=== PATIENT | female | born 2005 | race Two or more races ===

== ENCOUNTER 2024-09-06 16:17 | Emergency (ER) | payer MEDICAID, OTHER ==
[~2024-09-06] VITALS: Ht 157.5 cm; Wt 50.0 kg
--- NOTE | 2024-09-06 16:37 | ED.PDOC ---
History of Present Illness HPI Comments HPI: Poor Historian. 19-year-old female brought in by ambulance from home for evaluation of one day history of generalized weakness nausea vomiting nonbilious nonbloody with the associated slight dizziness. Patient denies any pain anywhere in her body. Per EMS, vital signs were stable. Patient received some Zofran prior to arrival. Patient denies any bleeding from anywhere. Denies any . Denies overdosing on anything. Denies any drug use or alcohol. Past Medical History: Depression Past Surgical History: Denies any Patient is on control pills REVIEW OF SYSTEMS: CONSTITUTIONAL: Denies acute: fever, diaphoresis, chills, HEAD: Denies acute: headache, photophobia Eyes: Denies acute: Double vision, vision loss, eye pain, eye discharge. EARS: Denies acute: tinnitus, hearing loss, ear discharge, ear pain, THROAT: Denies acute: sore throat, swelling, difficulty swallowing , pain with swallowing, change in voice. NECK: Denies acute: neck pain, neck swelling, stiff neck. HEART: Denies acute : chest pain, palpitations, LUNGS: Denies acute: SOB, wheezing, cough, hemoptysis ABDOMEN: Denies acute: abdominal pain, diarrhea, melena , hematemesis, hematochezia SKIN: Denies acute: rash, redness, lesions, itchiness. EXTREMITIES: Denies acute: calf pain, numbness, tingling, weakness, denies pain in extremity. Denies acute: Low back pain. Neuro: Denies acute: focal neurological deficit, motor or sensory focal neurological deficit, tremors, seizure like activity, confusion, change in mental status, loss of bowel or bladder function, cauda equina like symptoms. : Denies acute: dysuria, hematuria, flank pain, increase in urinary frequency. PSYCH: Denies acute: hallucination, suicidal ideation, homicidal ideation. FEMALE: Denies acute: abnormal vaginal bleeding, foul odor, unusual discharge. PHYSICAL EXAM: General: ----no----acute distress, awake and alert. Head: normocephalic, atraumatic. Neck: supple, trachea is midline, no swelling. Throat: Normal phonation. Eyes:, no erythema, no purulent discharge, no proptosis, no icterus. Heart: regular rate, regular rhythm, no significant murmur appreciated. Lungs: no apparent respiratory distress, Able to speak in full sentences. No wheezing, no rhonchi, no crackles. No stridors Clear to auscultation bilaterally. Abdomen: non tender to palpation, non distended, soft, no guarding, no rebound, + bowel sounds. Neuro: Awake, Alert, oriented to name, self, situation, follows commands GCS=15. Speech is normal. Skin: no petechia, no purpura, no cyanosis, slightly-pale, not jaundice. Lower extremities: --no - Pitting edema no deformity, no focal swelling, no calf TTP. Makes eye contact. moves all four extremities. Face: no apparent facial droop. No nuchal rigidity, Kernig's sign, Brudzinski's sign, no meningeal signs. ED COURSE: DISCLAIMER: This medical document was created using an electronic medical record system with voice recognition software and computerized dictation system. Although this document has been carefully reviewed, there might still be some phonetic and typographical errors. Occasional wrong-word or "sound-alike" substitutions may have occurred due to the inherent limitations of voice recognition software. These areas are purely typographical due to imperfections of the software programs and do not reflect any compromise in the patient's medical care. Please read the chart carefully and recognize, using context, where these substitutions have occurred. Chief Complaint: Nausea/Vomiting Time Seen by MD: 16:27 Reviewed Notes: Allergies Allergies: Coded Allergies: NO KNOWN ALLERGIES (Unverified , 09/06/24) Home Meds Active Scripts Nitrofurantoin Monohydrate Mac (Macrobid) 100 Mg Cap, 100 MG PO BID for 7 Days, #14 CAP Prov:AYANNA MEDEIROS DO 09/06/24 Information Source: Patient, Emergency Med Personnel Was a procedure done? Was a procedure done?: No Differential Dx Considerations may include: Includes but not limited to thyroid disease, encephalopathy, electrolyte abnormality, sepsis, infection, intracranial pathology, drug adverse effects, arrhythmia, kidney insufficiency, ACS, CVA, malignancy, anemia X-Ray, Labs, Meds, VS Vital Signs Date Time Temp Pulse Resp B/P (MAP) Pulse Ox O2 Delivery O2 Flow Rate FiO2 09/06/24 21:20 100 15 98 Room Air* 0 21 09/06/24 20:46 98.3 98.3 09/06/24 20:00 100 12 96/57 (70) 96 09/06/24 18:18 91 09/06/24 18:14 114/60 (78) 09/06/24 18:09 105/60 (75) 09/06/24 18:04 101/61 (74) 09/06/24 18:00 89 15 101/61 (74) 100 09/06/24 17:06 93 15 99 Room Air* 0 21 09/06/24 16:45 97.9 93 15 114/51 (72) 99 97.9 09/06/24 16:22 98.0 97 18 123/69 (87) 98 98.0 Lab Test 09/06/24 20:49 09/06/24 19:25 09/06/24 18:10 09/06/24 16:43 Range/Units Hemoglobin 10.3 L 9.5 #L 11.4 L 12.2-16.2 g/dL Hematocrit 31.7 #L 28.6 #L 34.0 L 36.0-46.0 % Troponin I High Sensitivity < 3 L < 3 L < 3 L </=34 ng/L White Blood Count 10.5 4.4-10.8 10^3/uL Red Blood Count 4.05 4.0-5.20 10^6/uL Mean Corpuscular Volume 84.0 80.0-100.0 fL Mean Corpuscular Hemoglobin 28.3 28.0-32.0 pg Mean Corpuscular Hemoglobin Concent 33.7 32.0-36.0 g/dL Red Cell Distribution Width 15.1 H 11.8-14.3 % Platelet Count 337 140-450 10^3/uL Mean Platelet Volume 7.4 6.9-10.8 fL Neutrophils (%) (Auto) 83.2 H 37.0-80.0 % Lymphocytes (%) (Auto) 9.7 L 10.0-50.0 % Monocytes (%) (Auto) 5.7 0.0-12.0 % Eosinophils (%) (Auto) 0.7 0.0-7.0 % Basophils (%) (Auto) 0.7 0.0-2.0 % Neutrophils # (Auto) 8.7 H 1.6-8.6 10 ^3/uL Lymphocytes # (Auto) 1.0 0.4-5.4 10 ^3/uL Monocytes # (Auto) 0.6 0-1.3 10 ^3/uL Eosinophils # (Auto) 0.1 0-0.8 10 ^3/uL Basophils # (Auto) 0.1 0-0.2 10 ^3/uL Nucleated Red Blood Cells 0.0 % Sodium Level 140 136-145 mmol/L Potassium Level 3.6 3.5-5.1 mmol/L Chloride Level 106 98-107 mmol/L Carbon Dioxide Level 23 20-31 mmol/L Anion Gap 11 5-15 Blood Urea Nitrogen 20 9-23 mg/dL Creatinine 0.95 0.550-1.02 mg/dL Glomerular Filtration Rate Calc 88 >90 mL/min BUN/Creatinine Ratio 21.1 H 10.0-20.0 Serum Glucose 115 H 74-106 mg/dL Lactic Acid Level 1.4 0.4-2.0 mmol/L Calcium Level 10.3 8.7-10.4 mg/dL Total Bilirubin 0.3 0.2-1.0 mg/dL Aspartate Amino Transferase (AST) 28 13-40 U/L Alanine Aminotransferase (ALT) 15 7-40 U/L Alkaline Phosphatase 51 46-116 U/L Total Protein 7.3 5.7-8.2 g/dL Albumin 4.8 3.2-4.8 g/dL Test 09/06/24 16:38 09/06/24 00:00 Range/Units POC Glucose 128 H 70-106 mg/dl Urine Color Yellow Yellow Urine Clarity Turbid H Clear Urine pH 5.5 5.0-9.0 Urine Specific [place] 1.030 1.001-1.035 Urine Protein 1+ H Negative Urine Ketones 3+ H Negative Urine Blood Negative Negative /uL Urine Nitrite Negative Negative Urine Bilirubin Negative Negative Urine Urobilinogen Normal Negative mg/dL Urine Leukocyte Esterase Negative Negative /uL Urine RBC 5 0 - 4 /hpf Urine Microscopic WBC 6 H 0-5 /HPF Urine Squamous Epithelial Cells Few <5 /hpf Urine Bacteria Few H None Seen /hpf Urine Hyaline Casts Few 0 - 2 /lpf Urine Mucus Moderate None Seen Urine Glucose Normal Normal mg/dL Urine Test Negative Negative Urine Opiates Screen Neg NEGATIVE Urine Fentanyl Screen Neg NEGATIVE Urine Barbiturates Screen Neg NEGATIVE Urine Phencyclidine Screen Neg NEGATIVE Urine Amphetamines Screen Neg NEGATIVE Urine Benzodiazepines Screen Neg NEGATIVE Urine Cocaine Screen Neg NEGATIVE Urine Cannabinoids Screen Neg NEGATIVE Time of 1ST Reevaluation: 21:53 (Mother is at bedside. Patient is now back to her normal self. Patient ambulating independently without any symptoms. Mother feels comfortable taking the patient home.) Reevaluation 1ST: Resolved Patient Education/Counseling: Diagnosis, Treatment Family Education/Counseling: Diagnosis, Treatment Comments MDM: patient presented with the above HPI.--generalized weakness and GI symptoms----workup was initiated. patient was found with the above mentioned diagnosis. the following medications were ordered: please refer to order lists of meds and tests obtained by myself Dr. Medeiros. Patient ED course and VS have been stabilized. Patient has been reassessed in the ED and remained in a stable condition. Pertinent incidental findings were discussed with the patient and/or family. Patient/family voices understanding and is agreeable with plan. Patient has been observed in the ED adequate length of time to insure improvement/stability. Escalation of care considered: Consideration of escalation to observation or admission Patient was DISCHARGED home in a stable condition. All the reports of any imaging studies that were ordered by myself were reviewed by myself. SEPSIS Sepsis Screen Physician Orders Senior Risk Analyst (09/06/24 ) Chest Portable (09/06/24 16:33) Electrocardigram (09/06/24 16:33) Vital Signs Date Time Temp Pulse Resp B/P (MAP) Pulse Ox O2 Delivery O2 Flow Rate FiO2 09/06/24 21:20 100 15 98 Room Air* 0 21 09/06/24 20:46 98.3 98.3 09/06/24 20:00 100 12 96/57 (70) 96 09/06/24 18:18 91 09/06/24 18:14 114/60 (78) 09/06/24 18:09 105/60 (75) 09/06/24 18:04 101/61 (74) 09/06/24 18:00 89 15 101/61 (74) 100 09/06/24 17:06 93 15 99 Room Air* 0 21 09/06/24 16:45 97.9 93 15 114/51 (72) 99 97.9 09/06/24 16:22 98.0 97 18 123/69 (87) 98 98.0 Laboratory Tests Test 09/06/24 16:43 Lactic Acid Level 1.4 mmol/L (0.4-2.0) White Blood Count 10.5 10^3/uL (4.4-10.8) Departure 1 Departure Time of Disposition: 20:02 Impression: Primary Impression: Generalized weakness Additional Impression: UTI (urinary tract infection) Disposition: ADMITTED INPATIENT Admit to: Tele Condition: Guarded Additional Instructions: Additional instructions: You MUST follow-up with your primary care/family doctor in 1 to 2 days. If you are unable to see your primary care/family doctor, please return to our emergency room for re-assessment and re-evaluation in 1 to 2 days. Return to the emergency room here in our facility or to the nearest ER [facility] if your symptoms change or worsen. CONSULTATIONS: you MUST Follow-up for consultation as soon as possible with: Follow up with the OB Gyne doctor in 1-2 days. Please call for appointment. Adequate fluid hydration. e-Prescriptions Nitrofurantoin Monohydrate Mac (Macrobid) 100 Mg Cap 100 MG PO BID for 7 Days, #14 CAP Prov: AYANNA MEDEIROS DO 09/06/24 Discharged With: Self Critical Care Note Critical Care Time?: No AYANNA MEDEIROS DO Sep 06, 2024 16:37
[2024-09-06] MEDS: SODIUM CHLORIDE 0.9% 1,000 ML IV ONE ×2 (16:44→18:41)
[2024-09-06 16:55] LABS: Hematocrit 34.0 % (36.0-46.0); Hemoglobin 11.4 g/dL (12.2-16.2); Nucleated Red Blood Cells % 0.0 %
[2024-09-06 16:56] LABS: Mean Corpuscular Hemoglobin 28.3 pg (28.0-32.0); Mean Corpuscular Volume 84.0 fL (80.0-100.0)
[2024-09-06 17:06] VITALS: PULSE 93; RESP 15; O2SAT 99
[2024-09-06 17:13] LABS: Alanine Aminotransferase 15 U/L (7-40); Albumin 4.8 g/dL (3.2-4.8); Alkaline Phosphatase 51 U/L (46-116); Anion Gap 11 (5-15); BUN/Creatinine Ratio 21.1 (10.0-20.0); Blood Urea Nitrogen 20 mg/dL (9-23); Calcium 10.3 mg/dL (8.7-10.4); Carbon Dioxide 23 mmol/L (20-31); Chloride 106 mmol/L (98-107); Potassium 3.6 mmol/L (3.5-5.1); Sodium 140 mmol/L (136-145); Total Protein 7.3 g/dL (5.7-8.2)
[2024-09-06 17:16] LABS: Bilirubin, Total 0.3 mg/dL (0.2-1.0); Glucose 115 mg/dL (74-106)
--- NOTE | 2024-09-06 18:19 | ECG ---
[facility] Test Date: 2024-09-06 Test Time: 18:18:38 Pat Name: HERLINDA HERNANDEZ Department: ED Room: Gender: F [employer]orem[employer] Operator: aisha : 2005 Requested By: AYANNA CALLAWAY Order Number: [id number] Reading MD: Kit Byrd Measurements Intervals [place] Rate: 91 P: 79 [place]: 140 QRS: 88 QRSD: 89 T: 41 QT: 376 QTc: 463 Interpretive Statements Sinus rhythm Probable left atrial enlargement Electronically Signed On 09-11-2024 15:47:52 PDT by Kit Byrd Please click the below link to view image of tracing.
[2024-09-06 19:32] LABS: Hematocrit 28.6 % (36.0-46.0); Hemoglobin 9.5 g/dL (12.2-16.2)
[2024-09-06 20:00] VITALS: BP 96/57
[2024-09-06 20:34] LABS: Urine Protein, UAD 1+ (Negative)
[2024-09-06 20:42] LABS: Amphetamine Screen, Urine Neg (NEGATIVE); Cannabinoid Screen, Urine Neg (NEGATIVE)
[2024-09-06 20:46] VITALS: TEMP 98.3
[2024-09-06 20:46] LABS: Barbiturate Scree,Urine Neg (NEGATIVE); Benzodiazephine Screen, Urine Neg (NEGATIVE); Cocaine Screen, Urine Neg (NEGATIVE); Opiate Scree,Urine Neg (NEGATIVE); Phencyclidine Screen, Urine Neg (NEGATIVE)
[2024-09-06 20:58] LABS: Hematocrit 31.7 % (36.0-46.0); Hemoglobin 10.3 g/dL (12.2-16.2)
[2024-09-06] MEDS: cefTRIAXone 1GM/50ML D5W 50 ML IV ONE (21:15)
[2024-09-06 21:20] VITALS: PULSE 100; RESP 15; O2SAT 98
[2024-09-06] MEDS ORDERED: NITR-87 PO (21:54)
--- NOTE | 2024-09-07 03:52 | DVH ---
CHEST RADIOGRAPH Indication: gen weak Technique: Single frontal view of the chest was obtained COMPARISON: None FINDINGS: Lines and Tubes: None Lungs: Clear Pleura: No effusion. No pneumothorax. Cardiomediastinal contours: Unremarkable Bones: Unremarkable IMPRESSION: 1. No acute disease.
== END 2024-09-06 22:07 | disposition home or self-care (01) ==
LOC: ER 16:17 → EDBD 16:17 → ER 22:07
DX: N39.0 Urinary tract infection, site not specified (principal)
CPT/HCPCS: 36415; 71045; 80053; 80307; 81001; 81025; 82947; 83605; 84484; 85014; 85018; 85025; 93005; 96361; 96365; 99285; J0696; 82962